=== PATIENT | male | born 2000 | race Two or more races ===

== ENCOUNTER 2022-09-14 19:12 | Emergency (ER) | payer OTHER ==
[~2022-09-14] VITALS: Ht 165.1 cm; Wt 86.2 kg
== END 2022-09-14 21:37 | disposition home or self-care (01) ==
LOC: ER 19:12
DX: S60.410A Abrasion of right index finger, initial encounter (principal); W26.0XXA Contact with knife, initial encounter; Y93.89 Activity, other specified; Y92.9 Unspecified place or not applicable; Z88.0 Allergy status to penicillin